=== PATIENT | female | born 1985 | race Caucasian/White ===

== ENCOUNTER 2018-10-02 04:52 | Emergency (ER) | payer SELFPAY ==
[~2018-10-02] VITALS: Ht 165.1 cm; Wt 44.9 kg
[2018-10-02] MEDS ORDERED: HYDROMORPHONE 1 MG/1 ML DISP.SYRIN ONE (05:08)
[2018-10-02] MEDS ORDERED: ONDANSETRON 4 MG/2 ML VIAL ONE (05:08)
[2018-10-02] MEDS: ONDANSETRON 4 MG/2 ML VIAL IM ONE (05:13)
[2018-10-02] MEDS: HYDROMORPHONE 1 MG/1 ML DISP.SYRIN IM ONE (05:13)
--- NOTE | 2018-10-02 05:16 | NUR ---
Pt bib rescue [id number] with c/o "menstrual cramps." Pt states her menstrual period started yesterday & the pain started 2 hrs [employer]. Pt also states she took 2 Advils 30 min but with no pain relief. Pt vomited at bedside 100 ml.
[2018-10-02 05:22] LABS: BASOPHILS # (AUTO) 0.1 K/uL (0.0-8.0); BASOPHILS % (AUTO) 0.9 % (0.0-2.0); EOSINOPHILS % (AUTO) 0.6 % (0.0-7.0); HEMATOCRIT 31.3 % (31.2-41.9); HEMOGLOBIN 10.3 g/dL (10.9-14.3); LYMPHOCYTES % (AUTO) 12.2 % (20.5-51.5); MEAN CORPUSCULAR HEMOGLOBIN 26.2 uug (24.7-32.8); MEAN CORPUSCULAR HGB CONC 33 g/dL (32.3-35.6); MEAN CORPUSCULAR VOLUME 79.7 fL (75.5-95.3); MONOCYTES # (AUTO) 0.5 K/uL (2.0-10.0); MONOCYTES % (AUTO) 6.5 % (0.0-11.0); NEUTROPHILS # (AUTO) 6.5 K/uL (1.8-8.9); NEUTROPHILS % (AUTO) 79.8 % (38.5-71.5); PLATELET COUNT (AUTO) 298 K/uL (179-408); RED BLOOD CELL COUNT(AUTO) 3.92 MIL/uL (3.63-4.92); WHITE BLOOD COUNT (AUTO) 8.2 K/uL (3.8-11.8)
--- NOTE | 2018-10-02 05:25 | NUR ---
Meds given. Blood drawn, sent to lab. Pending ultrasound.
--- NOTE | 2018-10-02 05:50 | NUR ---
Ultrasound at bedside.
--- NOTE | 2018-10-02 06:08 | NUR ---
Female clamp operator accompanied female patient for pelvic ultrasound.
--- NOTE | 2018-10-02 06:12 | NUR ---
Patient discharged to home in stable conditon. Written and verbal after care instructions given. Patient verbalizes understanding of instructions. Pt states she feels so much better. Denies any more pain. Pt states her friend will drive her home. All belongings with pt. VSS. NAD noted.
[2018-10-02 06:13] VITALS: BP 104/68
== END 2018-10-02 06:13 | disposition home or self-care (01) ==
LOC: ER 04:56
DX: N94.6 Dysmenorrhea, unspecified (principal)
CPT/HCPCS: 36415; 76856; 84702; 85025; 96372 ×2; 99285; J1170; J2405; A4663